=== PATIENT | male | born 1980 | race Caucasian/White ===

== ENCOUNTER 2016-08-18 16:54 | Emergency (ER) | payer OTHER ==
--- NOTE | 2016-08-25 14:34 | ER ---
ADMIT: 08/18/2016 RM/LOC: ER [facility] MR#: [id number] [facility] [address] [place], [place] [id number] ANA BATESGuido Vidales [address] [place] [address] Emergency Room Report SEX: M AGE: 36 : 1980 DATE: 08/18/2016 ADDENDUM: This patient comes to the ER from Urgent Care. He went to Urgent Care because he was concerned he had a sinus infection. He has had sinus symptoms for the last couple of months. While there, they realized that he was intoxicated, saw his liver enzymes were elevated and that his blood pressure was really high, so they sent him here to the emergency room. On physical exam, he is anxious and is intoxicated. His blood pressure initially was high 168/116 during his stay, it did come down. He does appear to have a sinusitis, but he also has chronic pain issues from back problems, and he states he drinks on a daily basis. He will drink a few pints of either vodka or rum. Every time he does try to detox, he withdrawals and gets very ill. He currently has an appointment to see a neurosurgeon about his chronic back pain. His family is with him concerned about his drinking. In the emergency room, his potassium was 3.1, AST was 199, ALT was normal. ETOH was 172. He was given a liter of bolus with thiamine and Ativan and Zofran. When I went to re-evaluate him, he was feeling quite a bit better. We discussed at length the possibility of going to [facility]. I spoke with [facility], and they do not have any beds available; however, they will have a bed available tomorrow morning, and the family would like to take him there to be evaluated in the morning. Meanwhile, I did write a prescription for Librium, Zofran, and Zithromax. They are to follow up with [facility] tomorrow or Dr. Funez as needed. His family will watch him this evening especially since I gave the prescription of Librium, they do not want him to accidentally take them. Please see my T-sheet. VIRIDIANA Barraza / Osmani Lee MD / orestes JOB #: [id number] CC: Osmani Lee MD, Attending Physician Zachariah Funez MD, Family Physician
== END 2016-08-18 20:25 | disposition home or self-care (01) ==
LOC: ER 16:54
DX: J32.9 Chronic sinusitis, unspecified (principal); F10.129 Alcohol abuse with intoxication, unspecified; Z88.0 Allergy status to penicillin; Z79.82 Long term (current) use of aspirin; Z79.899 Other long term (current) drug therapy